=== PATIENT | female | born 1995 | race Two or more races ===

== ENCOUNTER 2024-02-26 13:12 | Observation (INO) | payer BC, MEDICAID, SELFPAY ==
[2024-02-26] VITALS (26 sets, daily range): BP systolic 102–127; BP diastolic 54–65; PULSE 90–236; RESP 16; TEMP 36.7; O2SAT 92–100; BMI 39.6
[2024-02-26 14:25] LABS: Collection Type, Urine Clean Catch
[2024-02-26 14:48] LABS: Bacteria,Urine Rare; Bilirubin,Urine Negative (Negative); Blood,Urine Negative (Negative); Clarity,Urine Clear (Clear/Hazy); Color,Urine Colorless (Lt Yel-Yel); Glucose, Urine Negative (Negative); Ketones,Urine Negative (Negative); Leukocyte Esterase,Urine Negative (Negative); Nitrite,Urine Negative (Negative); Protein,Urine Negative (Neg - Trace); RBC,Urine 1 /hpf (0-3); Specific Gravity,Urine 1.003 (1.001-1.035); Squamous Epithelial Cell,Urine 1 /hpf (0-5); Urobilinogen,Urine Negative mg/dL (0.0-1.0); WBC,Urine 1 /hpf (0-5)
[2024-02-26 15:14] LABS: Fetal Fibronectin Negative (Negative)
[2024-02-26 15:15] LABS: FFN Specimen Descripton Other
== END 2024-02-26 16:00 | disposition home or self-care (01) ==
PROVIDERS: Admitting Provider Specialist; PCP Nurse Practitioner Family; Visit Provider Specialist
DX: O26.893 Other specified pregnancy related conditions, third trimester (principal); R25.2 Cramp and spasm; R03.0 Elevated blood-pressure reading, without diagnosis of hypertension; Z3A.29 29 weeks gestation of pregnancy
CPT/HCPCS: 59025; 59899; 81001; 82731; G0378

== ENCOUNTER 2024-04-07 10:47 | Outpatient (CLI) | payer MEDICAID, SELFPAY ==
[2024-04-07 10:55] VITALS: BP 111/66; PULSE 93; RESP 18; RESP 99; TEMP 36.6
[2024-04-07] MEDS: BETAMET ACET/BETAMET NA PH (Celestone) 6 MG/ML VIAL 12 MG IM (11:27)
[2024-04-07 11:37] VITALS: BMI 37.1
== END 2024-04-07 11:35 | disposition home or self-care (01) ==
LOC: S4S1 10:48 → S4SX 10:49
PROVIDERS: Referring Provider Specialist; Visit Provider Specialist
DX: Z34.83 Encounter for supervision of other normal pregnancy, third trimester (principal); Z36.9 Encounter for antenatal screening, unspecified; Z3A.35 35 weeks gestation of pregnancy
CPT/HCPCS: 59025; 96372; J0702

== ENCOUNTER 2024-04-08 11:41 | Outpatient (CLI) | payer MEDICAID, SELFPAY ==
[2024-04-08 11:45] VITALS: BP 116/66; PULSE 108; RESP 18; RESP 98; TEMP 36.7
[2024-04-08 12:17] VITALS: BMI 40.2
[2024-04-08] MEDS: BETAMET ACET/BETAMET NA PH (Celestone) 6 MG/ML VIAL 12 MG IM (12:21)
== END 2024-04-08 12:33 | disposition home or self-care (01) ==
LOC: S4S1 11:42 → S4SX 11:42
PROVIDERS: PCP Specialist; Referring Provider Specialist; Visit Provider Specialist
DX: Z34.83 Encounter for supervision of other normal pregnancy, third trimester (principal); Z36.89 Encounter for other specified antenatal screening; Z3A.35 35 weeks gestation of pregnancy
CPT/HCPCS: 59025; 96372; J0702

== ENCOUNTER 2024-04-21 09:23 | Observation (INO) | payer MEDICAID, SELFPAY ==
[2024-04-21 09:31] VITALS: BP 130/83; PULSE 115; RESP 100; RESP 17; TEMP 36.7
[2024-04-21 09:32] VITALS: BMI 40.5
[2024-04-21 09:44] VITALS: BP 130/83; PULSE 115
[2024-04-21 10:12] LABS: ROM Kit Lot # 57809118; ROM Swab Mixed By: GARCEN1; Rupture of Fetal Membranes Negative (Negative); Swb Mxed in Solvent 1 min? Yes
== END 2024-04-21 10:35 | disposition home or self-care (01) ==
PROVIDERS: Admitting Provider Specialist; Visit Provider Specialist
DX: Z34.83 Encounter for supervision of other normal pregnancy, third trimester (principal); Z3A.37 37 weeks gestation of pregnancy
CPT/HCPCS: 59025; 59899; 84112

== ENCOUNTER 2024-04-30 05:14 | Inpatient (IN) | payer MEDICAID, SELFPAY ==
--- NOTE | 2024-04-25 09:06 | ESHP_ITS ---
RE: VIKTORIYA GRAY : 1995 DATE OF ADMISSION: 04/30/2024 HISTORY OF PRESENT ILLNESS: This is a 29-year-old 2, para 1 with a due date of 05/11/2024 with intrauterine at 38 weeks and 3 days on 04/30/2024, who presents for delivery. The patient has a history of a prior delivery and she elects repeat delivery. The patient also has chronic hypertension and takes labetalol. The labetalol was started at 29 weeks' gestation. She has a history of preeclampsia in her previous . She has been treated for labor during her and on 04/07/2024 and 04/08/2024, she received betamethasone. ALLERGIES: NO KNOWN DRUG ALLERGIES. CURRENT MEDICATIONS: 1. multivitamin one p.o. daily. 2. Labetalol 100 mg one p.o. b.i.d. 3. Ferrous sulfate 325 mg one p.o. daily. 4. Omeprazole 20 mg one p.o. daily. 5. Aspirin 81 mg one p.o. daily. PAST MEDICAL HISTORY: Chronic hypertension, preeclampsia, delivery, polycystic ovarian syndrome, acne vulgaris, UTI due to proteus mirabilis, gastroesophageal reflux disease, depression, and anxiety. PAST SURGICAL HISTORY: delivery in 2020. SOCIAL HISTORY: She denies any alcohol, drug use, or smoking. FAMILY HISTORY: Breast cancer, diabetes, hypertension, gastroschisis, myasthenia gravis. OBSTETRIC HISTORY: 2020, 34 weeks delivery, 4 pound 4-ounce female complicated by preeclampsia. REVIEW OF SYSTEMS: She denies any chest pain, palpitations, cough, fever, shortness of breath, or lower extremity pain. She denies any headache, change in vision or right upper quadrant pain. PHYSICAL EXAMINATION: VITAL SIGNS: Blood pressure is 137/70, heart rate 88, respirations 18, temperature is 98.2, weight 228 pounds. HEENT: Oropharynx and sclerae are clear. LUNGS: Clear to auscultation bilaterally. HEART: Regular rate and rhythm. ABDOMEN: Gravid consistent with term size. Old Pfannenstiel scar noted. EXTREMITIES: Nontender. SKIN: No rashes or lesions. NEUROLOGIC: No focal deficit. ASSESSMENT: 1. Intrauterine at 38 weeks and 3 days on 04/30/2024. 2. Chronic hypertension. 3. Previous delivery. Elects repeat delivery. PLAN: Repeat delivery. Informed consent was obtained. The patient has been made aware of the risks, complications, alternatives, and benefits of the proposed procedure and she agrees. DT: 08:35:43 TT: 09:04:00 Ref: [id number] - TID: [id number] MTDD
[2024-04-29 11:26] LABS: Basophils % (Auto) 1 % (0-2.5); Eosinophils # (Auto) 0.1 Thou/mm3 (0.0-0.5); Eosinophils % (Auto) 1 % (0-10); Hematocrit 34.2 % (36.0-46.0); Hemoglobin 11.2 g/dL (12.0-16.0); Immature Granulocytes % (Auto) 1 % (0-0); Immature Granulocytes Auto 0.07 Thou/mm3 (0.00-0.00); Lymphocytes # (Auto) 1.4 Thou/mm3 (1.0-4.8); Lymphocytes % (Auto) 17 % (10-50); Mean Corpuscular HGB Conc 32.7 g/dl (31.0-37.0); Mean Corpuscular Hemoglobin 27.9 pg (25.0-35.0); Mean Corpuscular Volume 85 fL (80-100); Monocytes # (Auto) 0.5 Thou/mm3 (0.0-0.8); Monocytes % (Auto) 6 % (0-12); Neutrophils # (Auto) 5.9 Thou/mm3 (1.8-7.7); Neutrophils % (Auto) 75 % (37-80); Nucleated Red Blood Cell % 0 /100 WBC (0); Platelet Count 197 Thou/mm3 (140-440); RDW Standard Deviation 40.2 fL (36.4-46.3); Red Blood Count 4.01 Miln/mm3 (4.00-5.20)
[2024-04-29 11:45] LABS: INR 0.9 (0.9-1.3); Partial Thromboplastin Time 25.9 Seconds (22.0-36.0); Prothrombin Time 10.3 Seconds (9.0-12.2)
[2024-04-29 12:01] LABS: Alanine Aminotransferase 7 U/L (10-49); Albumin, Serum 3.9 gm/dL (3.5-5.0); Albumin/Globulin Ratio 1.3 (1.2-2.2); Alkaline Phosphatase 158 U/L (46-116); Anion Gap 8 (7-16); Aspartate Amino Transferase < 10 U/L (0-34); BUN/Creatinine Ratio 16 Ratio (12-20); Bilirubin,Total 0.4 mg/dL (0.3-1.2); Blood Urea Nitrogen 8 mg/dL (9-23); Calcium (Corrected) 9.1 mg/dL (8.5-10.1); Carbon Dioxide 23.2 mMol/L (20.0-31.0); Chloride 105 mMol/L (98-107); Creatinine (Component) 0.5 mg/dL (0.6-1.3); Globulin 2.9 gm/dL (2.3-3.5); Glucose 97 mg/dL (74-106); Osmolality,Calculated 270 (275-295); Potassium 4.3 mMol/L (3.4-5.1); Sodium 136 mMol/L (136-145); Total Protein 6.8 gm/dL (5.7-8.2); eGFR > 60 See Note
[2024-04-29 12:06] LABS: Syphilis Nonreactive (Nonreactive)
[2024-04-30] VITALS (15 sets, daily range): BP systolic 95–119; BP diastolic 57–72; PULSE 74–105; RESP 14–21; TEMP 36.6–37.1; O2SAT 95–99; BMI 41.3
[2024-04-30] MEDS: RINGERS LACTATED 1000 ML 1,000 ML 100 ML IV ×3 (05:50→19:16)
[2024-04-30] MEDS: ceFAZolin/D5W 2 GM IV 2 GM/100 ML BAG IV (07:13)
[2024-04-30] MEDS: FAMOTIDINE INJ 10 MG/ML VIAL 2 ML 20 MG IV (07:13)
[2024-04-30] MEDS: CITRIC ACID/SODIUM CITR 15 ML UDC (BICITRA) 30 ML PO (07:13)
--- NOTE | 2024-04-30 08:33 | ESDS_ITS ---
DS: Providers Provider Date of admission: 04/30/24 05:14 Primary care physician: DYLON Weinstein MD Admitting Provider: Dino Guzman MD Attending Provider on Admission: Dino Guzman MD Attending Provider on DC: Dino Guzman MD Discharging Provider: Dino Guzman MD DS: Diagnosis Problem List Completed Was Problem List Reviewed/Reconciled?: Yes Summary/Hosp Course Peripartum Data Procedures: Procedures Operation Date: 04/30/24 07:45 <No data on this case meets the specified criteria> Time Spent with Patient Time attestation: Total time spent providing and/or coordinating discharge services: Exam Vital Signs Pulse BP 102 H 119/67 04/30/24 05:41 04/30/24 05:41 Discharge Plan Plan Patient Disposition: HOME (Self Care) Patient condition on transfer: Stable Prescriptions/Referrals Prescriptions/Med Rec: No Action PNV [id number] [] 28 mg iron- 800 mcg Tablet 1 tab PO QDAY labetalol 100 mg Tablet 100 mg PO QDAY Referrals: Parish Lucero MD [Primary Care Provider] - Patient/Caregiver Discharge Instructions Discharge Activity: activity as tolerated Other Discharge Activity Instructions:: Follow up office 1 week. Education Materials: C Section Dc Print Language: Italian Stand Alone Forms: Casie Award Info., Patient Portal Info Letter Planned Discharge Date 05/02/24
[2024-04-30] MEDS: KETOROLAC INJ 30 MG/ML VIAL IVP (10:01)
[2024-04-30] MEDS: OXYTOCIN in NS 20 units 20 UNIT/1,000 ML BAG 125 UNIT IV (10:47)
--- NOTE | 2024-04-30 11:20 | PC.NURSE ---
PT HAS SUCCESSFULLY COMPLETED RECOVERY.
[2024-04-30] MEDS: ACETAMINOPHEN 325 MG TABLET 650 MG PO (12:18)
[2024-04-30 13:11] LABS: Basophils % (Auto) 0 % (0-2.5); Eosinophils % (Auto) 0 % (0-10); Hematocrit 33.1 % (36.0-46.0); Hemoglobin 11.1 g/dL (12.0-16.0); Immature Granulocytes % (Auto) 1 % (0-0); Immature Granulocytes Auto 0.07 Thou/mm3 (0.00-0.00); Lymphocytes # (Auto) 0.7 Thou/mm3 (1.0-4.8); Lymphocytes % (Auto) 5 % (10-50); Mean Corpuscular HGB Conc 33.5 g/dl (31.0-37.0); Mean Corpuscular Hemoglobin 28.5 pg (25.0-35.0); Mean Corpuscular Volume 85 fL (80-100); Monocytes # (Auto) 0.2 Thou/mm3 (0.0-0.8); Monocytes % (Auto) 1 % (0-12); Neutrophils # (Auto) 13.3 Thou/mm3 (1.8-7.7); Neutrophils % (Auto) 93 % (37-80); Nucleated Red Blood Cell % 0 /100 WBC (0); Platelet Count 193 Thou/mm3 (140-440); Red Blood Count 3.89 Miln/mm3 (4.00-5.20); White Blood Count 14.3 Thou/mm3 (3.6-11.0)
--- NOTE | 2024-04-30 14:22 | PD.LDDELS ---
Data (Wall) Data Hx Section: Yes : 2 Para: 1 Term: 0 : 1 : 0 Delivery Data (Wall) Labor Data ROM Date: 04/30/24 ROM Time: 08:07 Rupture Type: AROM Delivery Data EDC: 05/11/24 EDC calculated by:: LMP/early US confirmation Delivery Date: 04/30/24 Delivery Time: 08:08 Gestational age (weeks): 38 Gestational age (days): 3 Placenta Delivery Date: 04/30/24 Placenta Delivery Time: 08:09 Delivered by: Dino Guzman Delivery nurse: Erin Fisher Delivery Method Delivery: Delivery Type: Repeat Presentation: Vertex Position: OA Anesthesia Type Primary Anesthesia: Spinal Placenta Placenta Delivery: Manual Placenta Cultures Obtained: No Placenta Sent for Examination: No Cord Sample: Cord Blood Obtained EBL Estimated blood loss (ml): 600 Umbilical Cord Placenta/Cord Complication: Other Nuchal Cord: x1 Additional Procedures Vacuum assisted delivery with MityVac Complications Complications: None Data (Wall) Data Infant Gender: Male Weight Grams: 3320 1 Minute Total: 8 5 Minute Total: 9
[2024-04-30] MEDS: IBUPROFEN TAB 400 MG TABLET 800 MG PO (14:41)
[2024-04-30] MEDS: HYDROcodone/APAP 5/325 TABLET 1 TAB PO ×2 (17:40→21:33)
[2024-05-01] MEDS: IBUPROFEN TAB 400 MG TABLET 800 MG PO ×2 (03:05→14:00)
[2024-05-01 04:27] VITALS: BP 113/72; PULSE 95; RESP 16; TEMP 36.6; O2SAT 97
[2024-05-01] MEDS: HYDROcodone/APAP 5/325 TABLET 1 TAB PO ×2 (06:22→22:36)
[2024-05-01 08:30] VITALS: BP 104/70; PULSE 93; RESP 16; TEMP 36.7; O2SAT 97
[2024-05-01] MEDS: HYDROcodone/APAP 5/325 TABLET 2 TAB PO ×2 (10:11→15:51)
[2024-05-01] MEDS: SIMETHICONE 80 MG CHEW PO (10:11)
[2024-05-01] MEDS: Milk Of Magnesia Susp 30 ML UDC PO (10:11)
--- NOTE | 2024-05-01 15:08 | ESPR_ITS ---
RE: VIKTORIYA GRAY : 1995 DATE OF SERVICE: 05/01/2024 SUBJECTIVE: Postop day #1. The patient denies any problem or complaints. She is avoiding ambulating, tolerating diet, passing flatus. She denies any excessive vaginal bleeding. She denies any dizziness or lightheadedness. She denies any chest pain, palpitations, shortness of breath or lower extremity pain. OBJECTIVE: Vital Signs: Blood pressure is 104/70, heart rate 93, respirations 16, temperature 98.0, pulse oximetry is 97% on room air. Lungs: Clear to auscultation bilaterally. Heart: Regular rate and rhythm. Abdomen: Incision clean and intact. Extremities: Nontender. LABORATORY DATA: Hemoglobin pre-delivery is 11.2. Post delivery is 11.1. ASSESSMENT: Postop day #1, status post delivery. PLAN: Discontinue IV. Encouraged ambulation, support, possible discharge home tomorrow. DT: 13:07:36 TT: 15:07:00 Ref: [id number] - TID: [id number]
[2024-05-01 16:00] VITALS: BP 124/78; PULSE 96; RESP 17; TEMP 36.7; O2SAT 96
[2024-05-01 19:47] VITALS: BP 113/75; PULSE 94; RESP 18; TEMP 36.7; O2SAT 98
[2024-05-01] MEDS: ACETAMINOPHEN 325 MG TABLET 650 MG PO (20:33)
[2024-05-02 00:35] VITALS: BP 116/80; PULSE 100; RESP 18; TEMP 36.7; O2SAT 98
[2024-05-02] MEDS: IBUPROFEN TAB 400 MG TABLET 800 MG PO ×2 (03:34→11:10)
[2024-05-02] MEDS: Milk Of Magnesia Susp 30 ML UDC PO (03:36)
[2024-05-02] MEDS: SIMETHICONE 80 MG CHEW PO (03:36)
[2024-05-02 04:10] VITALS: BP 107/64; PULSE 97; RESP 18; TEMP 36.6; O2SAT 99
[2024-05-02 08:00] VITALS: BP 115/68; PULSE 94; RESP 18; TEMP 36.6; O2SAT 99
[2024-05-02] MEDS: bisacodyL 5 MG TABEC PO (08:00)
--- NOTE | 2024-05-02 08:17 | ESOP_ITS ---
RE: VIKTORIYA GRAY : 1995 DATE OF OPERATION: 04/30/2024 PREOPERATIVE DIAGNOSES: 1. Intrauterine at 38 weeks and 3 days. 2. Chronic hypertension. 3. Previous delivery. 4. Elects repeat delivery. POSTOPERATIVE DIAGNOSES: 1. Intrauterine 38 weeks and 3 days. 2. Chronic hypertension. 3. Previous delivery. 4. Elects repeat delivery. PROCEDURE PERFORMED: A repeat low transverse section via Pfannenstiel skin incision. SURGEON: Dino Guzman DO NOVELTY CANDY MAKER: ELI Saavedra ANESTHESIA: Spinal. ANESTHESIOLOGIST: Juju Moise CRNA ESTIMATED BLOOD LOSS: 600 mL. COMPLICATIONS: None. COUNTS: Correct. PATHOLOGY: None. FINDINGS: A live , cephalic presentation, clear amniotic fluid. Apgars, see RN notes. Cord blood sent. Uterus, ovaries, tubes grossly within normal limits. DESCRIPTION OF PROCEDURE: After proper informed consent was obtained and the patient was made aware of the risks, complications, alternatives, and benefits of the proposed procedure, she was taken to the operating room where she underwent induction of spinal anesthesia. She was placed in the dorsal supine position with leftward tilt. She was prepped and draped in usual sterile fashion. A timeout was performed. A Pfannenstiel skin incision was made with scalpel, carried through to the underling layer of fascia with the Bovie. The fascia was nicked in the midline. Incision extended bilaterally with the Bovie. The inferior aspect of the fascial incision was grasped with Shirley clamps and elevated. The underlying rectus muscles were dissected off with the Bovie. The rectus muscles were in the midline. The peritoneum was identified between two Hawk clamps and entered sharply with the Metzenbaum scissors. The incision was extended superiorly and inferiorly with good visualization of the bladder. The bladder blade was then inserted. The vesicouterine peritoneum was incised transversely and bladder flap was created digitally. The bladder blade was reinserted. The low uterine segment was incised in a transverse fashion with a scalpel. The incision was extended bilaterally digitally. The infant's head was delivered. The mouth and nose were suctioned with bulb suction. Shoulder and body delivered atraumatically. The cord was clamped and cut. The infant was handed off to the awaiting pediatric staff. Cord blood and gases were sent. The placenta was then removed manually. The uterus was exteriorized and cleared of all clots and debris. The uterine incision was repaired with #1-0 chromic catgut suture in a running locking fashion. The second layer of the same suture was used to imbricate the first layer and obtained excellent hemostasis. The vesicouterine peritoneum was closed with 2-0 chromic catgut suture in a running fashion. The fascia was closed with 0 Vicryl beginning at each angle and ending in the center running fashion. Subcutaneous tissue was irrigated with normal saline solution. The skin was closed with 4-0 Monocryl. A Dermabond Prineo dressing was applied. A sterile pressure dressing was applied. She tolerated the procedure well. All counts were correct. I discussed with the patient the nature of her condition, the intraoperative findings, and expectations for recovery. All questions were answered. DT: 08:40:03 TT: 10:33:00 Ref: [id number] - TID: [id number]
[2024-05-02] MEDS: HYDROcodone/APAP 5/325 TABLET 1 TAB PO (09:38)
== END 2024-05-02 11:25 | disposition home or self-care (01) | DRG 540 ==
LOC: S4SX 06:12 → S4NX 08:12
PROVIDERS: Admitting Provider Specialist; PCP Family Medicine; Visit Provider Specialist
PROC: 10D00Z1 Extraction of Products of Conception, Low, Open Approach (ICD-10-PCS; CPT 59514; principal; 2024-04-30 07:30)
DX: O34.211 Maternal care for low transverse scar from previous cesarean delivery (principal); O16.4 Unspecified maternal hypertension, complicating childbirth; Z37.0 Single live birth; Z3A.38 38 weeks gestation of pregnancy; O69.81X0 Labor and delivery complicated by cord around neck, without compression, not applicable or unspecified
CPT/HCPCS: 36415; 59409; 80053; 85025; 85610; 85730; 86780; 86850; 86900; 86901; 94762; A4649; J0689; J1100; J1885; J2250; J2274; J2371; J2405; J2590; J3010; J3490; J7120; A9270; J2270

== ENCOUNTER → 2024-08-07 | Outpatient (CLI) | payer MEDICAID, SELFPAY ==
--- NOTE | 2024-08-07 | XR_ITS ---
Examination: Lumbar spine, 5 views Technique: Lumbar spine AP, lateral, coned lateral lower lumbar spine, bilateral obliques 5 views Exam date and time: August 07, 2024 at 0733 hours INDICATIONS: Lower back pain beginning 3 months ago FINDINGS: Satisfactory alignment lumbar vertebral bodies Moderate facet arthropathy at the lowest lumbar levels No lumbar fracture Mild disc narrowing L5-S1 No spondylolisthesis IMPRESSION: Mild disc narrowing L5-S1
== END | disposition home or self-care (01) ==
LOC: CDIM 07:15
PROVIDERS: PCP Physician Assistant; Referring Provider Physician Assistant; Visit Provider Physician Assistant
DX: M48.07 Spinal stenosis, lumbosacral region (principal)
CPT/HCPCS: 72110

== ENCOUNTER → 2024-10-10 | Outpatient (CLI) | payer BC, MEDICAID, SELFPAY ==
[2024-10-10 08:00] LABS: Collection Type, Urine Clean Catch
[2024-10-10 08:34] LABS: Basophils # (Auto) 0.0 Thou/mm3 (0.0-0.2); Basophils % (Auto) 0 % (0-2.5); Eosinophils # (Auto) 0.1 Thou/mm3 (0.0-0.5); Eosinophils % (Auto) 1 % (0-10); Hematocrit 39.1 % (36.0-46.0); Hemoglobin 12.9 g/dL (12.0-16.0); Immature Granulocytes Auto 0.03 Thou/mm3 (0.00-0.00); Lymphocytes # (Auto) 1.4 Thou/mm3 (1.0-4.8); Lymphocytes % (Auto) 21 % (10-50); Mean Corpuscular HGB Conc 33.0 g/dl (31.0-37.0); Mean Corpuscular Hemoglobin 28.5 pg (25.0-35.0); Mean Corpuscular Volume 86 fL (80-100); Monocytes # (Auto) 0.3 Thou/mm3 (0.0-0.8); Monocytes % (Auto) 5 % (0-12); Neutrophils # (Auto) 4.7 Thou/mm3 (1.8-7.7); Neutrophils % (Auto) 72 % (37-80); Nucleated Red Blood Cell # 0.00 Thou/mm3 (0.00-0.00); Nucleated Red Blood Cell % 0 /100 WBC (0); Platelet Count 283 Thou/mm3 (140-440); RDW Standard Deviation 39.1 fL (36.4-46.3); Red Blood Count 4.53 Miln/mm3 (4.00-5.20); White Blood Count 6.6 Thou/mm3 (3.6-11.0)
[2024-10-10 08:38] LABS: Bacteria,Urine Rare; Bilirubin,Urine Negative (Negative); Blood,Urine Negative (Negative); Clarity,Urine Clear (Clear/Hazy); Color,Urine Lt-Yellow (Lt Yel-Yel); Culture Indicated,Urine Not Indicated; Glucose, Urine Negative (Negative); Ketones,Urine Negative (Negative); Leukocyte Esterase,Urine Negative (Negative); Nitrite,Urine Negative (Negative); PH,Urine 6.0 (5.0-7.0); Protein,Urine Negative (Neg - Trace); RBC,Urine 4 /hpf (0-3); Specific Gravity,Urine 1.023 (1.001-1.035); Squamous Epithelial Cell,Urine 2 /hpf (0-5); Urobilinogen,Urine Negative mg/dL (0.0-1.0); WBC,Urine 2 /hpf (0-5)
[2024-10-10 08:47] LABS: T4 (Thyroxine) 8.0 mcg/dL (4.5-10.9)
[2024-10-10 08:57] LABS: Alanine Aminotransferase 24 U/L (10-49); Albumin, Serum 4.6 gm/dL (3.5-5.0); Albumin/Globulin Ratio 1.6 (1.2-2.2); Alkaline Phosphatase 71 U/L (46-116); Anion Gap 9 (7-16); Aspartate Amino Transferase 21 U/L (0-34); BUN/Creatinine Ratio 17 Ratio (12-20); Bilirubin,Total 0.6 mg/dL (0.3-1.2); Blood Urea Nitrogen 12 mg/dL (9-23); Calcium 9.1 mg/dL (8.3-10.6); Calcium (Corrected) 9.1 mg/dL (8.5-10.1); Carbon Dioxide 24.6 mMol/L (20.0-31.0); Cardiac Risk Estimate 3.4 RATIO (3.7-5.6); Chloride 108 mMol/L (98-107); Cholesterol 118 mg/dL (132-200); Creatinine (Component) 0.7 mg/dL (0.6-1.3); Free T4 (Free Thyroxine) 1.22 ng/dL (0.89-1.76); Globulin 2.8 gm/dL (2.3-3.5); Glucose 104 mg/dL (74-106); HDL Cholesterol 35 mg/dL (40-60); LDL Cholesterol,Calculated 62 mg/dL (0-130); Osmolality,Calculated 282 (275-295); Potassium 4.0 mMol/L (3.4-5.1); Sodium 142 mMol/L (136-145); Thyroid Stimulating Hormone 1.10 uIU/mL (0.55-4.78); Total Protein 7.4 gm/dL (5.7-8.2); Triglycerides 106 mg/dL (30-150); eGFR > 60 See Note
[2024-10-15 06:33] LABS: T3,Total* 103 ng/dL (76-181); Thyroglobulin Antibodies* <1 IU/mL (< OR = 1); Thyroid Peroxidase Antibodies* <1 IU/mL (<9)
== END | disposition home or self-care (01) ==
PROVIDERS: PCP Physician Assistant; Referring Provider Nurse Practitioner Family; Visit Provider Nurse Practitioner Family
DX: Z00.00 Encounter for general adult medical examination without abnormal findings (principal); E03.9 Hypothyroidism, unspecified; E55.9 Vitamin D deficiency, unspecified; N39.0 Urinary tract infection, site not specified; Z13.1 Encounter for screening for diabetes mellitus; Z13.220 Encounter for screening for lipoid disorders; Z13.29 Encounter for screening for other suspected endocrine disorder; Z79.899 Other long term (current) drug therapy
CPT/HCPCS: 36415; 80053; 80061; 81001; 84436; 84439; 84443; 84480; 85025; 86376; 86800

== ENCOUNTER → 2024-10-13 | Outpatient (CLI) | payer BC, MEDICAID, SELFPAY ==
--- NOTE | 2024-10-13 15:30 | XR_ITS ---
Examination: Thyroid sonography complete TECHNIQUE: Grayscale sonographic images thyroid lobes Date and time: October 13, 2024 1546 hours INDICATIONS: Neck swelling years FINDINGS: Right thyroid 4.5 cm Left thyroid 4.7 cm No cystic or solid masses IMPRESSION: Negative examination
== END | disposition home or self-care (01) ==
PROVIDERS: PCP Nurse Practitioner Family; Referring Provider Nurse Practitioner Family; Visit Provider Nurse Practitioner Family
DX: E07.9 Disorder of thyroid, unspecified (principal)
CPT/HCPCS: 76536

== ENCOUNTER → 2024-11-06 | Outpatient (CLI) | payer BC, MEDICAID, SELFPAY ==
[2024-11-06 15:29] LABS: Glucose Estimated Average 108 mg/dL (80-131); Hemoglobin A1C 5.4 % Hgb (4.8-6.0)
== END | disposition home or self-care (01) ==
LOC: COPL 07:03
PROVIDERS: PCP Nurse Practitioner Family; Referring Provider Nurse Practitioner Family; Visit Provider Nurse Practitioner Family
DX: R73.01 Impaired fasting glucose (principal)
CPT/HCPCS: 36415; 83036